=== PATIENT | female | born 1940 | race Caucasian/White ===

== ENCOUNTER → 2023-08-28 12:45 | Outpatient (REF) | payer OTHER, SELFPAY | LOC: RAD 12:45 | PROVIDERS: ATTENDING PHYSICIAN Internal Medicine Rheumatology; FAMILY PHYSICIAN Family Medicine | DX: G62.9 Polyneuropathy, unspecified (principal); M70.62 Trochanteric bursitis, left hip; M81.0 Age-related osteoporosis without current pathological fracture; Z51.81 Encounter for therapeutic drug level monitoring | CPT/HCPCS: 72114 ==

== ENCOUNTER → 2025-06-30 07:35 | Outpatient (REF) | payer OTHER, SELFPAY | LOC: HWRAD 07:35 | PROVIDERS: ATTENDING PHYSICIAN Internal Medicine Rheumatology; FAMILY PHYSICIAN Family Medicine | DX: M81.0 Age-related osteoporosis without current pathological fracture (principal) | CPT/HCPCS: 77080 ==